=== PATIENT | male | born 1975 | race Caucasian/White ===

== ENCOUNTER → 2020-10-26 09:41 | Outpatient (BNVA) | payer OTHER, SELFPAY | PROVIDERS: Visit Provider Physician Assistant Medical | DX: R07.81 Pleurodynia (principal) | CPT/HCPCS: 71101; 99203 ==

== ENCOUNTER → 2020-11-02 09:53 | Outpatient (BNVA) | payer OTHER, SELFPAY | PROVIDERS: Visit Provider Physician Assistant | DX: S22.31XD Fracture of one rib, right side, subsequent encounter for fracture with routine healing (principal); X58.XXXD Exposure to other specified factors, subsequent encounter | CPT/HCPCS: 99213 ==

== ENCOUNTER → 2021-10-02 10:16 | Outpatient (BNVA) | payer OTHER, SELFPAY | PROVIDERS: Visit Provider Physician Assistant Medical | DX: S82.499A Other fracture of shaft of unspecified fibula, initial encounter for closed fracture (principal); W00.1XXA Fall from stairs and steps due to ice and snow, initial encounter | CPT/HCPCS: 73610; 99203 ==

== ENCOUNTER 2021-10-06 07:09 | Outpatient (REF) | payer OTHER, SELFPAY ==
--- NOTE | ~2021-10-06 | XR_ITS ---
EXAMINATION: XR ANKLE, RIGHT CLINICAL INFORMATION: Pain COMPARISON: 10/02/2021 TECHNIQUE: AP, lateral, and mortise views of the right ankle. XR/XR ankle RT min 3V FINDINGS/IMPRESSION: Stable alignment of the minimally displaced obliquely oriented distal fibular transsyndesmotic metaphyseal fracture. Ankle mortise is congruent. Talar dome intact. No additional fractures. Mild soft tissue swelling lateral to the ankle, decreased from the prior exam.
== END 2021-10-06 07:10 | disposition home or self-care (01) ==
LOC: HO.HOSX 07:09
PROVIDERS: Visit Provider Physician Assistant
DX: S82.831A Other fracture of upper and lower end of right fibula, initial encounter for closed fracture (principal)
CPT/HCPCS: 73610; 99202

== ENCOUNTER 2021-10-11 11:23 | Day surgery (SDC) | payer OTHER, SELFPAY ==
--- NOTE | 2021-10-10 14:44 | HO.ANESPROP2 ---
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
--- NOTE | ~2021-10-11 | FL_ITS ---
EXAMINATION: XR FLUOROSCOPY WITH IMAGES CLINICAL INFORMATION: Distal fibular fracture. Post reduction. COMPARISON: Radiographs right ankle 10/06/2021, 10/02/2021 TECHNIQUE: Fluoroscopy performed by Dr. John Aponte. Fluoroscopy time: 0.1 minutes DAP: 0.99829 mGycm2 Images: 3 FINDINGS: Distal fibular fracture is reduced with lateral side compression plate and multiple screws. Visualized hardware is intact. Fracture fragments are in near-anatomic alignment. Ankle mortise is symmetric. FL/FL guidance in OR IMPRESSION: Status post open reduction internal fixation distal fibular fracture. Hardware intact.
[2021-10-11 12:15] VITALS: BMI 25.7
[2021-10-11 12:18] VITALS: BP 162/97; PULSE 81; RESP 16; TEMP 36.8; O2SAT 95
--- NOTE | 2021-10-11 13:12 | P.CONAN_ITS ---
[facility] Active Problems Active Problems: All Active Problems (Updated 10/06/21 @ 11:21 by Funmi Valadez PA-C) Closed fracture of right distal fibula (Acute) Past Medical History Medical History Smoker Family History Family history of problems with anesthesia: No Surgical History History of Problems with Anesthesia: No Social History Social History (Updated 10/06/21 @ 10:28 by John Shay) Patient Tobacco Use Status: Current everyday Tobacco user Tobacco use type: Cigarette Cigarettes Per Day: 15 Years Smoked: 20 Smoked in Last 30 Days: Yes Use of substances other than those prescribed or required for medical reasons: Yes Substance Use Frequency: Daily Are you DNR?: No Advance Directives: No Advance Directives Information Provided: No Current occupational status: employed Current occupation: [employer] work Meds Allergies Allergy/AdvReac Type Severity Reaction Status Date / Time Penicillins [PCN] Allergy Hives Verified 10/11/21 12:05 Home Medications Medication Instructions Recorded Confirmed Last Taken Type No Known Home Meds 10/11/21 10/11/21 Unknown History Exam Exam Date and Time: October 11, 2021 1312 Height,Weight and Vital Signs: Height 6 ft 1 in Weight 88.451 kg Last Vital Signs Temp 98.2 F 10/11/21 12:18 Pulse 81 10/11/21 12:18 Resp 16 10/11/21 12:18 BP 162/97 H 10/11/21 12:18 Pulse Ox 95 10/11/21 12:18 Airway Mallampati Class: I TM Dist: >3cm Neck ROM: Full Assessment and Plan Assessment Anesthesia Assessment: Anesthesia Plan Discussed, Smoking Cess. Discussed and Chart Reviewed Final Anesthetic Review Family History of Problems with Anesthesia: No History of Problems with Anesthesia: No NPO: Yes ASA Class: II Final Preanesthetic Review: No Changes in Pt Med Stat, Meds/Allgs Chart Reviewed, Consent Obtained/Reviewed and Anes Risks/Benef Reviewed Patient Risk: Intermediate Procedure Risk: Intermediate Anesthetic Plan Anesthetic Plan: Spinal Disposition: Standard PACU
[2021-10-11 14:39] VITALS: BP 170/100; PULSE 70; RESP 16; TEMP 36.6; O2SAT 97
[2021-10-11 14:45] VITALS: BP 162/103; PULSE 71; RESP 16; O2SAT 98
[2021-10-11 14:50] VITALS: BP 153/101; PULSE 77; RESP 16; O2SAT 97
[2021-10-11] MEDS: oxyCODONE HCl Immed Release 5 MG TABLET 10 MG PO (15:06)
[2021-10-11 15:08] VITALS: BP 153/92; PULSE 76; RESP 16; O2SAT 98
[2021-10-11 15:20] VITALS: BP 158/91; PULSE 76; RESP 16; O2SAT 98
--- NOTE | 2021-10-11 16:36 | P.BOP_ITS ---
Brief Operative Note Date of Service: 10/11/21 Pre-op diagnosis: Right lateral malleolus fracture Post-op diagnosis: same Procedure: RIght ankle ORIF Implants: Strykler distal locking plate Surgeon: John Aponte MD Anesthesia: GETA and local Was an [employer]person [employer] used for this Procedure?: Yes Salesperson [employer]: Funmi Valadez Estimated blood loss (mL): 25 Tourniquet time (min): 30 IV fluids (mL): 650 Pathology: none sent Condition: stable Disposition: PACU
--- NOTE | 2021-10-24 09:47 | W.PM.OPN ---
Operative Note Operative Note Date of Service: 10/11/21 Narrative: Date of Service: 10/11/21 Pre-op diagnosis: Right lateral malleolus fracture Post-op diagnosis: same Procedure: RIght ankle ORIF Implants: Strykler distal locking plate Surgeon: John Aponte MD Anesthesia: GETA and local Was an [employer] Director Intelligence Officer used for this Procedure?: Yes [employer] Director Intelligence Officer: Funmi Valadez Estimated blood loss (mL): 25 Tourniquet time (min): 30 IV fluids (mL): 650 Pathology: none sent Condition: stable Disposition: PACU Procedure in detail: Patient was brought to the operating room and placed supine on the operative table. All bony prominences were well padded and a time-out was called to identify proper site proper procedure proper surgeon. IV antibiotics per weight were administered. I began by exsanguinating limb is slightly tourniquet to 300 mm Hg. I then made a standard posterolateral incision over the fibula. Full-thickness flaps were taken down to the fibular shaft and distal fibula. The fracture was identified and cleaned with a combination of curette, rongeur and irrigation. A lobster claw was used to provisionally reduce the fracture and a 6 hole distal fibular locking plate was applied using standard AO technique. Biplanar fluoroscopy was used to confirm hardware position and fracture reduction. Once I was satisfied that both of these were acceptable I irrigated copiously. A cotton test was performed as well as a exteranl rotation stress test and the syndesmosis was stable. Therefore all instrumentation was removed and copious irrigation was performed. Absorbable suture and ale were used for closure and the patient was placed into sterile dressings and a well-padded posterior splint. Tourniquet was let down and the patient was extubated brought to recovery room in stable condition there were no known complications.
== END 2021-10-11 16:01 | disposition home or self-care (01) ==
PROVIDERS: Visit Provider Orthopaedic Surgery
PROC: (CPT 27792; principal; 2021-10-11 14:00)
DX: S82.61XA Displaced fracture of lateral malleolus of right fibula, initial encounter for closed fracture (principal); M25.571 Pain in right ankle and joints of right foot; W00.0XXA Fall on same level due to ice and snow, initial encounter; Y93.9 Activity, unspecified; Y92.69 Other specified industrial and construction area as the place of occurrence of the external cause; Y99.0 Civilian activity done for income or pay; F17.210 Nicotine dependence, cigarettes, uncomplicated; Z88.0 Allergy status to penicillin
CPT/HCPCS: 27792; C1713; J0690; J1100; J1170; J1885; J2250; J2405; J3010

== ENCOUNTER 2021-10-23 06:37 | Outpatient (REF) | payer OTHER, SELFPAY ==
--- NOTE | ~2021-10-23 | XR_ITS ---
EXAMINATION: XR ANKLE, RIGHT CLINICAL INFORMATION: Ankle pain COMPARISON: 10/06/2021 TECHNIQUE: AP, lateral, and mortise views of the right ankle. FINDINGS: Internal fixation of a distal fibular fracture. Hardware is intact. Near-anatomic alignment of the distal fibular fracture. No significant callus formation is seen. XR/XR ankle RT min 3V IMPRESSION: Status post internal fixation of a distal fibular fracture. No significant callus formation is seen.
== END 2021-10-23 06:38 | disposition home or self-care (01) ==
LOC: HO.HOSX 06:37
PROVIDERS: Visit Provider Physician Assistant
DX: S82.831D Other fracture of upper and lower end of right fibula, subsequent encounter for closed fracture with routine healing (principal); X58.XXXD Exposure to other specified factors, subsequent encounter
CPT/HCPCS: 73610; 99212

== ENCOUNTER → 2021-11-20 08:40 | Outpatient (BNVA) | payer OTHER, SELFPAY | PROVIDERS: Visit Provider Physician Assistant | DX: S82.831D Other fracture of upper and lower end of right fibula, subsequent encounter for closed fracture with routine healing (principal) | CPT/HCPCS: 99212 ==

== ENCOUNTER 2021-12-18 08:10 | Outpatient (REF) | payer OTHER, SELFPAY ==
--- NOTE | ~2021-12-18 | XR_ITS ---
EXAMINATION: XR ANKLE, RIGHT CLINICAL INFORMATION: Pain right ankle and joints of right foot. COMPARISON: Right ankle 10/15/2021. TECHNIQUE: AP, lateral, and mortise views of the right ankle. FINDINGS: There is a lateral plate and screws along the distal fibula. Old healed fracture. No new acute fractures seen. The ankle mortise and subtalar joints are normal. There is a small calcaneal heel enthesophyte. There is mild soft tissue swelling along the inferior lateral ankle. It is more prominent than the previous exam 10/15/2021. XR/XR ankle RT min 3V IMPRESSION: Stabilized distal fibular fracture with lateral plate and screws in alignment. Previously seen surgical ale have been removed. There is moderate lateral malleolar soft tissue swelling inferior to ankle joints, slightly more pronounced than the last exam.
== END 2021-12-18 08:11 | disposition home or self-care (01) ==
LOC: HO.HOSX 08:10
PROVIDERS: Visit Provider Physician Assistant
DX: S82.831D Other fracture of upper and lower end of right fibula, subsequent encounter for closed fracture with routine healing (principal)
CPT/HCPCS: 73610; 99212

== ENCOUNTER 2022-01-29 06:28 | Outpatient (REF) | payer OTHER, SELFPAY ==
--- NOTE | ~2022-01-29 | XR_ITS ---
EXAMINATION: XR ANKLE, RIGHT CLINICAL INFORMATION: Pain COMPARISON: Previous x-ray most recent November 2021 TECHNIQUE: AP, lateral, and mortise views of the right ankle. FINDINGS: There is a plate and screws in the distal fibula. Orthopedic hardware appears unchanged. There is lucency seen adjacent to the most proximal screw questionable for evidence of loosening. There is a healing fracture of the distal shaft of the fibula that appears unchanged. No other fracture is seen. The ankle mortise is normal. There may be an ankle joint effusion. XR/XR ankle RT min 3V IMPRESSION: ORIF of right ankle fracture. Fracture of the distal shaft of the fibula does not appear changed. There is lucency adjacent to the most proximal screw in the fibula questionable for loosening.
== END 2022-01-29 06:29 | disposition home or self-care (01) ==
LOC: HO.HOSX 06:28
PROVIDERS: Visit Provider Physician Assistant
DX: S82.831D Other fracture of upper and lower end of right fibula, subsequent encounter for closed fracture with routine healing (principal); X58.XXXD Exposure to other specified factors, subsequent encounter
CPT/HCPCS: 73610; 99212